=== PATIENT | male | born 1960 | race Two or more races ===

== ENCOUNTER 2019-01-09 08:51 | Emergency (ER) | payer MEDICAID ==
[~2019-01-09] VITALS: Ht 165.1 cm; Wt 127.0 kg
[2019-01-09] MEDS ORDERED: METHOCARBAMOL 500 MG TAB PO ONE (10:15)
[2019-01-09] MEDS ORDERED: KETOROLAC TROMETH 60MG/2ML VIAL IM ONE (10:15)
[2019-01-09 11:22] VITALS: BP 161/80
== END 2019-01-09 11:42 | disposition home or self-care (01) ==
LOC: ER 08:51 → EDBD 08:51 → ER 11:42
DX: S13.4XXA Sprain of ligaments of cervical spine, initial encounter (principal); M54.5 Low back pain; V43.52XA Car driver injured in collision with other type car in traffic accident, initial encounter; Y93.I9 Activity, other involving external motion; Y92.488 Other paved roadways as the place of occurrence of the external cause; Y99.8 Other external cause status
CPT/HCPCS: 72125; 96372; 99284; J1885

== ENCOUNTER → 2019-05-09 | Outpatient (CLI) | payer MEDICAID | END | disposition home or self-care (01) | LOC: Rad HDHVI 13:24 | PROVIDERS: ATTEND Internal Medicine | DX: G47.33 Obstructive sleep apnea (adult) (pediatric) (principal); I11.9 Hypertensive heart disease without heart failure | CPT/HCPCS: 93306 ==

== ENCOUNTER → 2019-06-06 | Outpatient (CLI) | payer MEDICAID ==
[~2019-06-06] VITALS: Ht 165.1 cm; Wt 120.7 kg
== END | disposition home or self-care (01) ==
LOC: Rad HDHVI 08:08
PROVIDERS: ATTEND Internal Medicine
DX: R06.02 Shortness of breath (principal); R63.8 Other symptoms and signs concerning food and fluid intake; R35.0 Frequency of micturition; E11.9 Type 2 diabetes mellitus without complications; G47.33 Obstructive sleep apnea (adult) (pediatric)
CPT/HCPCS: 78452; 93017; 96374; A9500